=== PATIENT | female | born 1985 | race African-American/Black ===

== ENCOUNTER → 2019-03-17 15:38 | Outpatient (CLI) | payer MEDICAID, SELFPAY ==
[2019-03-17 21:49] LABS: Chlamydia Trachomatis by PCR Negative (Negative); Neisserai gonorrhoeae by PCR Negative (Negative); Probe Check PASS; Sample Adequacy Control PASS; Specimen Processing Control PASS
[2019-03-21 18:46] LABS: HPV Reflexed? NOT INDICATED
== END ==
PROVIDERS: Visit Provider Obstetrics & Gynecology
DX: Z12.4 Encounter for screening for malignant neoplasm of cervix (principal); Z11.3 Encounter for screening for infections with a predominantly sexual mode of transmission
CPT/HCPCS: 87491; 87591; 88175; G0145

== ENCOUNTER → 2021-02-12 | Outpatient (CLI) | payer MEDICAID, SELFPAY ==
[2021-02-17 13:28] LABS: HPV Reflexed? NOT INDICATED
== END | disposition home or self-care (01) ==
LOC: LABSPEC 10:17
PROVIDERS: Visit Provider Obstetrics & Gynecology
DX: Z12.4 Encounter for screening for malignant neoplasm of cervix (principal)
CPT/HCPCS: 88175; G0145

== ENCOUNTER 2022-02-28 22:57 | Emergency (ER) | payer MEDICAID, SELFPAY ==
--- NOTE | 2022-02-28 00:12 | RAD_ITS ---
STUDY: X-RAY CHEST REASON FOR EXAM: Female, 37 years old. chest pain TECHNIQUE: Single AP portable view of the chest. COMPARISON: None. FINDINGS: The lungs are clear and expanded. There is no demonstrated pleural abnormality. Normal size heart. Normal mediastinum and nadja. Normal visualized pulmonary arteries. Normal visualized aortic arch and descending thoracic aorta. Normal visualized thoracic spine. Normal visualized ribs, clavicles, and shoulders. There is no demonstrated abnormality of the visualized soft tissue structures of the upper abdomen. RAD/Chest 1 View (Portable) IMPRESSION: Normal x-ray examination of the chest. Electronically Signed: Alexis Benoit MD at 0:56 EST ,
[2022-02-28 22:59] VITALS: BP 143/86; PULSE 100; RESP 16; TEMP 36.4; O2SAT 97; BMI 40.7
--- NOTE | 2022-02-28 23:18 | EDS_ITS ---
HPI History of Present Illness Chief Complaint: Headache Informant: patient Narrative Narrative: Patient presents with what she describes as a migraine. She states she has a long history of migraines going back to childhood in her teenage years. In the past she has been on amitriptyline as well as multiple other medicines to try to control these. She has had trigger point injections. But she states she was doing pretty well for a few years. Now the last 1 to 1-1/2 years that your headaches been coming back more frequently and more severe. This headache started somewhere 1 to 2 weeks ago. Slow onset. Not thunderclap. She states is not the worst headache she has but it is lasting longer than most. She describes it is all over the head. She does have some mild sonophobia. She has some photophobia. She has had nausea and vomiting when it gets bad. No numbness tingling or weakness. She was seen at urgent care today and got relief with Toradol but it only lasted about 3 or 4 hours and now she is back here. She denies being ill recently with such things as fevers cough myalgias rashes or other complaints. No weight loss. No traumas. Again, no neurologic symptoms. She describes this is a typical migraine for her it is just lasting longer than normal. She has been seeing a doctor about her anxiety as they think that is a contributor to the migraines but she has not been placed on blood controlling meds yet. PFSH PFS Home Medications bupropion HCl 200 mg tablet,12 hr sustained-release 200 mg PO BID 03/01/22 [History Last Taken Unknown] buspirone 10 mg tablet 10 mg PO TID 03/01/22 [History Last Taken Unknown] ondansetron 4 mg disintegrating tablet 4 mg PO PRN PRN Nausea 03/01/22 [History Last Taken Unknown] prednisone 20 mg tablet 40 mg PO DAILY 5 days #10 tabs 03/01/22 [Rx Last Taken Unknown] promethazine 25 mg tablet 25 mg PO PRN PRN Nausea 03/01/22 [History Last Taken Unknown] Allergy/AdvReac Type Severity Reaction Status Date / Time No Known Allergies Allergy Verified 02/28/22 23:00 Social History Smoking Status: Never smoker ROS ROS ED Constitutional Constitutional ED: Denies chills, fever(s) or subjective Eyes Eyes: Denies blurry vision, change in vision or diplopia ENT ENT ED: Denies rhinorrhea or sore throat Cardiovascular Cardiovascular: Reports chest pain and other Details: Patient did state on rev iew of systems that she has some chest pain. She thinks it is just that all her muscles tighten up when the headache is bad and those include muscles in her chest. She is not having the symptoms now. She has noted dyspnea and diaphoresis. Nausea and vomiting is more related to headaches. She has no history of high blood pressure cholesterol diabetes smoking or family history of heart disease. Respiratory/Chest Respiratory/Chest: Denies cough Gastrointestinal Gastrointestinal: Reports nausea and vomiting; Denies abdominal pain or diarrhea Genitourinary Genitourinary ED: Denies dysuria Musculoskeletal Musculoskeletal: Denies arthralgias Integumentary Denies rash Neurologic Neurologic: Reports headache(s); Denies paresthesias or weakness Psychiatric Psychiatric: Reports anxiety Endocrine Endocrinology: Denies polydipsia or polyuria Hematologic/Lymphatic Hematologic/Lymphatic: Denies lymphadenopathy Allergic/Immunologic Allergic/Immunologic ED: Denies urticaria EXAM Physical Exam Const Vital Signs: 02/28/22 22:59 02/28/22 23:46 Temperature 97.6 F L Temperature Source Temporal Pulse Rate 100 73 Respiratory Rate 16 16 Blood Pressure 143/86 H Blood Pressure Mean 105 Pulse Ox 97 97 Oxygen Delivery Method Room Air Room Air Positive well nourished and well developed General Appearance ED: well developed and NAD HEENT Reports moist mucous membranes HEENT Narrative: Mucous membranes are still moist. She does not have temporal artery tenderness. No rashes. No sinus tenderness. No nasal discharge. Eyes EOMs intact bilaterally Eyes Narrative: Extraocular muscles are intact. She does have some photophobia. No proptosis. Neck supple Neck Narrative: No JVD or meningismus Chest Wall inspection of chest normal Resp normal respiratory effort and clear to auscultation bilaterally Cardio regular rate and regular rhythm GI normal to inspection, nondistended, normoactive bowel sounds and non-tender Back/Spine no CVA tenderness Extremity normal to inspection Neuro oriented x3 and CN's II-XII intact bilaterally Sensorium / Orientation: alert; Negative for orientation impaired, lethargic or stuporous Psych mental status grossly normal Skin no rashes or lesions noted MDM MDM MDM Narrative Medical decision making narrative: Chest x-ray and CT showed no acute process. CBC is normal. Electrolytes are normal. Chloride was minimally up. Mild elevation in the BUN and creatinine but she was given IV fluids here. Glucose was 124. I rechecked the patient and she feels completely resolved. She is not having headache. She is not nauseated. No photophobia. My concern is that she has been having this headache coming and going for a week or 2 weeks now. This is her second visit to medical system for care. I will give a short course of steroids to see if this will give her some benefit. Patient's troponin was also negative. She had made the comment about chest pain but this was in combination with kind of pains and cramping all over when she got nauseated and with a headache. She is at low risk for heart disease. The symptoms have been going off and on for a day or so I do not think this needs a repeat troponin. Lab Data Attestation: I reviewed the patient's lab results. Labs: Laboratory Results - last 24 hr 02/28/22 02/28/22 23:15 23:15 WBC 9.8 RBC 5.25 Hgb 14.2 Hct 43.9 MCV 83.6 MCH 27.0 MCHC 32.3 RDW Std Deviation 38.3 RDW Coeff of Sandie 12.6 Plt Count 229 MPV 10.7 Immature Gran % (Auto) 0.400 Neut % (Auto) 69.1 Lymph % (Auto) 13.9 L Dooly % (Auto) 8.9 Eos % (Auto) 7.4 H Baso % (Auto) 0.3 Absolute Neuts (auto) 6.8 Absolute Lymphs (auto) 1.36 Nucleated RBC % 0 Sodium 140 Potassium 3.6 Chloride 108 H Carbon Dioxide 25.0 Anion Gap 7 BUN 20 H Creatinine 0.92 Estim Creat Clear Calc 82.21 Est GFR (MDRD) Af Amer 89 Est GFR (MDRD) Non-Af 74 BUN/Creatinine Ratio 21.9 H Glucose 124 H Calcium 9.2 Troponin I High Sens 3 Radiography Diagnostic Testing: Clinical Impression(s) from Imaging Studies Chest X-Ray 02/28/22 00:12 IMPRESSION: Normal x-ray examination of the chest. Electronically Signed: Alexis Benoit MD at 0:56 EST , Brain CT 03/01/22 23:16 IMPRESSION: Normal unenhanced CT scan of the brain. Electronically Signed: Alexis Benoit MD at 0:55 EST Reading Location ID and State: [facility] / [place] Tel , Service support , Chest x-ray looked by me and read by radiology shows no acute process. CT also showed was normal. EKG Initial EKG: Comments: EKG done for history of chest pain read by me shows a normal sinus rhythm overall rate of 87. No ventricular ectopy. No acute ST elevation or depression. CT interval, QRS duration and QTc are normal. Discharge Plan Triage Chief Complaint: Headache ED Provider: Altaf Davidson Dx/Rx/DC Orders Clinical Impression: Headache, migraine, Chest pain Instructions: ED, Migraine (Classical) Prescriptions: New prednisone 20 mg tablet 40 mg PO DAILY 5 Days Qty: 10 0RF No Action buspirone 10 mg tablet 10 mg PO TID promethazine 25 mg tablet 25 mg PO PRN PRN (Reason: Nausea) ondansetron 4 mg tablet,disintegrating 4 mg PO PRN PRN (Reason: Nausea) bupropion HCl 200 mg tablet sustained-release 12 hr 200 mg PO BID Primary Care Provider: Joaquin Alarcon NP Referrals: Joaquin Alarcon STRATEGIC SOURCING MANAGER, STRATEGIC SOURCING MANAGER-C [Primary Care Provider] - 3-5 Days if not improving Disposition Disposition: Home, Self Care
[2022-02-28 23:42] LABS: Absolute Lymphocyte Count 1.36 X10^3/uL (0.83-4.51); Absolute Neutrophil Count 6.8 X10^3/uL (2.0-7.7); Basophil# 0.03 X10^3/uL; Basophil% 0.3 % (0-1); Eosinophil# 0.72 X10^3/uL; Eosinophils% 7.4 % (0-5); Hematocrit 43.9 % (37-47); Hemoglobin 14.2 g/dL (12.0-15.0); Lymphocyte # 1.36 X10^3/ul (0.83-4.51); Lymphocyte % 13.9 % (19-41); Mean Corp Hgb Conc 32.3 g/dL (32-36); Mean Corpuscular Volume 83.6 fL (81-99); Mean Platelet Vol. 10.7 fl (6.2-12.0); Monocyte# 0.87 X10^3/uL; Monocyte% 8.9 % (0-10); NRBC Flagged by Analyzer 0 % (0-5); Neutrophil # 6.76 X10^3/uL (2.7-7.7); Neutrophil % 69.1 % (47-70); Platelet Count 229 K/mm3 (150-450); RBC Distribution Width CV 12.6 % (11.6-14.6); RBC Distribution Width SD 38.3 fl (35.1-43.9); Red Blood Count 5.25 M/mm3 (4.2-5.4); White Blood Count 9.8 K/mm3 (4.4-11.0)
[2022-02-28 23:46] VITALS: PULSE 73; RESP 16; O2SAT 97
[2022-02-28 23:57] LABS: Anion Gap 7 (5-15); BUN 20 mg/dL (7-18); BUN/Creat Ratio 21.9 RATIO (10-20); Calcium,Total 9.2 mg/dL (8.5-10.1); Chloride 108 mmol/L (98-107); Creatinine, Serum 0.92 mg/dL (0.55-1.02); EST Glomerular Filtration Rate 74 mL/min (>60); Est Glom Filt Rate - Afr Amer 89 mL/min (>60); Estimated Creatinine Clearance 82.21 ml/min; Glucose 124 mg/dL (74-106); Potassium 3.6 mmol/L (3.5-5.1); Sodium Level 140 mmol/L (136-145); Troponin-I HS 3 pg/mL (3.0-54.0)
[2022-03-01] MEDS: 0.9% Normal Saline 1,000 ML 999 ML IV (00:31)
[2022-03-01] MEDS: DiphenhydrAMINE 50 MG/ML Syringe IV (00:31)
[2022-03-01] MEDS: proCHLORPERazine 10 MG/2 ML Vial IV (00:31)
[2022-03-01] MEDS: MethylPREDNISolone 125 MG/2 ML Vial 60 MG IV (02:05)
[2022-03-01 02:06] VITALS: PULSE 81; RESP 16; O2SAT 98
--- NOTE | 2022-03-01 23:16 | CT_ITS ---
STUDY: CT BRAIN WITHOUT CONTRAST REASON FOR EXAM: Female, 37 years old. Pain RADIATION DOSAGE (If Supplied By Facility): CTDIvol = ( 44.99 ) mGy, DLP = ( 812.98 ) mGycm TECHNIQUE: Transaxial CT imaging of the brain was performed without administration of intravenous contrast material. Individualized dose optimization techniques were used for this CT. COMPARISON: No relevant priors. FINDINGS: Normal soft tissue structures. Normal calvarium. Normal size ventricles and extra-axial spaces for the patient''s age. Normal white matter tracts of the cerebral hemispheres. Normal basal ganglia and thalami. Normal brainstem. Normal cerebellum. There is no intracranial hemorrhage. There are no findings of an acute ischemic infarction. Normal visualized paranasal sinuses. CT/Brain/Head without Contrast IMPRESSION: Normal unenhanced CT scan of the brain. Electronically Signed: Alexis Benoit MD at 0:55 EST ,
== END 2022-03-01 02:07 | disposition home or self-care (01) ==
PROVIDERS: Emergency Provider Emergency Medicine; PCP Nurse Practitioner Family; Visit Provider Emergency Medicine
DX: G43.909 Migraine, unspecified, not intractable, without status migrainosus (principal); R07.9 Chest pain, unspecified; Z79.899 Other long term (current) drug therapy
CPT/HCPCS: 70450; 71045; 80048; 84484; 85025; 93005; 96361; 96374; 96375; 99283; J7030; A4216

== ENCOUNTER 2022-03-08 12:56 | Emergency (ER) | payer MEDICAID, SELFPAY ==
[2022-03-08 12:57] VITALS: BP 125/82; PULSE 68; RESP 18; TEMP 36.1; O2SAT 98; BMI 40.2
--- NOTE | 2022-03-08 13:15 | US_ITS ---
STUDY: ABDOMINAL ULTRASOUND - RIGHT UPPER QUADRANT REASON FOR VISIT: Female, 37 years old RUQ pain TECHNIQUE: Ultrasound evaluation of the right upper quadrant was performed with real-time and static comer-scale imaging. TECHNICAL QUALITY: Adequate. COMPARISON: None. FINDINGS: Liver: The liver measures 17.5 cm. There is normal echogenicity of the liver. The bile ducts are within normal limits. There is hepatic color flow. The direction of portal flow is hepatopetal. There is no demonstrated mass lesion. Gallbladder: Normal distended gallbladder. The gallbladder wall measures 2 mm. There is a positive sonographic Quezada''s sign. There is no pericholecystic fluid. There are a few gallstones. Common Bile Duct (C.B.D.): The common bile duct measures 4 mm. Pancreas: Normal size of the head and body of the pancreas. The pancreatic tail is obscured by overlying bowel gas. There is normal echogenicity of the pancreas. There is no demonstrated pancreatic mass or cyst. The pancreatic duct is not dilated with a 2 mm diameter. Right Kidney: Normal size of the right kidney. The right kidney measures 12 x 5.6 x 5.4 cm. Normal renal cortex. The right cortex measures 1.8 cm. Small anechoic cyst measuring 1.4 x 1.2 x 1.2 cm. There is no right hydronephrosis. US/Gallbladder IMPRESSION: 1. Few small gallstones with positive sonographic Quezada''s sign but no pericholecystic fluid. 2. Small right renal anechoic cyst. Electronically Signed: Johnny Rogers MD at 14:22 EST ,
--- NOTE | 2022-03-08 13:18 | EDS_ITS ---
HPI History of Present Illness Chief Complaint: Abd Pain Narrative Narrative: 37-year-old female presenting with right upper quadrant abdominal pain. She states this started on Wednesday. Pain is worsened with eating. She has had nausea and dry heaves. Denies vomiting or diarrhea. She states she had a low- grade fever at home. No history of previous abdominal surgeries. Denies possibility of . Prior similar symptoms: Yes Recent Illness/Hospitalization: No PFSH PFSH Home Medications bupropion HCl 200 mg tablet,12 hr sustained-release 200 mg PO BID 03/01/22 [History Last Taken Unknown] buspirone 10 mg tablet 10 mg PO TID 03/01/22 [History Last Taken Unknown] ondansetron 4 mg disintegrating tablet 4 mg PO PRN PRN Nausea 03/01/22 [History Last Taken Unknown] prednisone 20 mg tablet 40 mg PO DAILY 5 days #10 tabs 03/01/22 [Rx Last Taken Unknown] promethazine 25 mg tablet 25 mg PO PRN PRN Nausea 03/01/22 [History Last Taken Unknown] hydrocodone-acetaminophen 5-325mg 5mg-325mg 1 tab PO Q6H PRN PRN Pain 3 days #10 TABLETS 03/08/22 [Rx Last Taken Unknown] Allergy/AdvReac Type Severity Reaction Status Date / Time No Known Allergies Allergy Verified 03/08/22 12:58 Social History Smoking Status: Never smoker ROS ROS ED Constitutional Constitutional ED: Denies fever(s) Eyes Eyes: Denies change in vision ENT ENT ED: Denies rhinorrhea or sore throat Cardiovascular Cardiovascular: Denies chest pain or palpitations Respiratory/Chest Respiratory/Chest: Denies cough or dyspnea Gastrointestinal Gastrointestinal: Reports abdominal pain and nausea; Denies diarrhea or vomiting Genitourinary Genitourinary ED: Denies dysuria Musculoskeletal Musculoskeletal: Denies myalgias Integumentary Denies rash Neurologic Neurologic: Denies headache(s) Psychiatric Psychiatric: Denies suicidal thoughts EXAM Physical Exam Const Vital Signs: 03/08/22 12:57 Temperature 96.9 F L Temperature Source Temporal Pulse Rate 68 Respiratory Rate 18 Blood Pressure 125/82 H Blood Pressure Mean 96 Pulse Ox 98 Oxygen Delivery Method Room Air Positive well nourished and well developed General Appearance ED: well developed HEENT Reports normocephalic and head/scalp atraumatic Eyes PERRL and EOMs intact bilaterally Neck supple General: Negative for tenderness Chest Wall inspection of chest normal Resp normal respiratory effort and clear to auscultation bilaterally Cardio regular rate and regular rhythm GI non-distended Palpation: soft and tender RUQ; Negative for guarding or rebound tenderness present no CVA tenderness Extremity normal to inspection Neuro oriented x3 Sensorium / Orientation: alert Psych mental status grossly normal MDM MDM MDM Narrative Medical decision making narrative: Patient is given IV fluids, morphine, Zofran. CBC shows a normal white count. Chemistries are unremarkable. Total bili 0.4, AST 13, ALT 19. Lipase is normal. negative. Ultrasound gallbladder shows few small gallstones with positive sonographic Quezada sign but no pericholecystic fluid. Patient is feeling improved on reevaluation. She will follow-up with Dr. Glez as an outpatient. Advised return to ED for worsening complaints. Lab Data Attestation: I reviewed the patient's lab results. Labs: Laboratory Results - last 24 hr 03/08/22 03/08/22 03/08/22 13:24 13:24 13:24 WBC 5.0 RBC 5.30 Hgb 14.7 Hct 44.8 MCV 84.5 MCH 27.7 MCHC 32.8 RDW Std Deviation 38.1 RDW Coeff of Sandie 12.4 Plt Count 255 MPV 10.5 Immature Gran % (Auto) 0.200 Neut % (Auto) 31.9 L Lymph % (Auto) 37.3 Hayes % (Auto) 7.6 Eos % (Auto) 22.2 H Baso % (Auto) 0.8 Absolute Neuts (auto) 1.6 L Absolute Lymphs (auto) 1.86 Nucleated RBC % 0 Differential Comment SCANNED Atypical Lymphocytes 2+ Sodium 141 Potassium 3.6 Chloride 108 H Carbon Dioxide 28.0 Anion Gap 5 BUN 6 L Creatinine 0.67 Estim Creat Clear Calc 112.88 Est GFR (MDRD) Af Amer 128 Est GFR (MDRD) Non-Af 106 BUN/Creatinine Ratio 9.0 L Glucose 98 Calcium 8.6 Total Bilirubin 0.40 AST 13 L ALT 19 Alkaline Phosphatase 57 Total Protein 8.1 Albumin 3.5 Globulin 4.6 H Albumin/Globulin Ratio 0.8 L Lipase 54 L Serum , Qual NEGATIVE Radiography Diagnostic Testing: Clinical Impression(s) from Imaging Studies Gallbladder Ultrasound 03/08/22 13:15 IMPRESSION: 1. Few small gallstones with positive sonographic Quezada''s sign but no pericholecystic fluid. 2. Small right renal anechoic cyst. Electronically Signed: Johnny Rogers MD at 14:22 EST Reading Location ID and State: [address] [place] [address] , Service support , Discharge Plan Triage Chief Complaint: Abd Pain ED Provider: Maria Guadalupe Gonzales Dx/Rx/DC Orders Clinical Impression: Biliary colic Instructions: ED Gallstones with Biliary Colic Prescriptions: New hydrocodone-acetaminophen 5-325 mg tablet 1 tab PO Q6H PRN PRN (Reason: Pain) 3 Days Qty: 10 0RF No Action buspirone 10 mg tablet 10 mg PO TID promethazine 25 mg tablet 25 mg PO PRN PRN (Reason: Nausea) ondansetron 4 mg tablet,disintegrating 4 mg PO PRN PRN (Reason: Nausea) bupropion HCl 200 mg tablet sustained-release 12 hr 200 mg PO BID prednisone 20 mg tablet 40 mg PO DAILY 5 Days Qty: 10 0RF Primary Care Provider: Joaquin Alarcon NP Referrals: Marco Glez MD [Med Staff - Active Staff] - Joaquin Alarcon NP, ASSURANCE ASSISTANT-C [Primary Care Provider] - Disposition Disposition: Home, Self Care
[2022-03-08] MEDS: Morphine 4 MG/ML Syringe IV (13:24)
[2022-03-08] MEDS: Ondansetron 4 MG/2 ML Vial IV (13:24)
[2022-03-08] MEDS: 0.9% Normal Saline 1,000 ML 1000 ML IV (13:25)
[2022-03-08 13:29] LABS: Absolute Lymphocyte Count 1.86 X10^3/uL (0.83-4.51); Absolute Neutrophil Count 1.6 X10^3/uL (2.0-7.7); Basophil# 0.04 X10^3/uL; Basophil% 0.8 % (0-1); Eosinophil# 1.11 X10^3/uL; Eosinophils% 22.2 % (0-5); Hematocrit 44.8 % (37-47); Hemoglobin 14.7 g/dL (12.0-15.0); Lymphocyte # 1.86 X10^3/ul (0.83-4.51); Lymphocyte % 37.3 % (19-41); Mean Corp Hgb Conc 32.8 g/dL (32-36); Mean Corpuscular Hgb 27.7 pg (27.0-32.0); Mean Corpuscular Volume 84.5 fL (81-99); Mean Platelet Vol. 10.5 fl (6.2-12.0); Monocyte# 0.38 X10^3/uL; Monocyte% 7.6 % (0-10); NRBC Flagged by Analyzer 0 % (0-5); Neutrophil # 1.59 X10^3/uL (2.7-7.7); Neutrophil % 31.9 % (47-70); POSITIVE MORPHOLOGY YES; Platelet Count 255 K/mm3 (150-450); RBC Distribution Width CV 12.4 % (11.6-14.6); RBC Distribution Width SD 38.1 fl (35.1-43.9)
[2022-03-08 13:31] LABS: Differential Indicated SCAN CRITERIA MET
[2022-03-08 13:37] LABS: Internal QC Validated? YES +Cl - CLEAR BKGD; Pregnancy, Serum, hCG Quali. NEGATIVE Negative
[2022-03-08 13:46] LABS: ALB/GLOB Ratio 0.8 RATIO (0.9-2.4); AST(SGOT) 13 U/L (15-37); Alanine Aminotransfer ALT/SGPT 19 U/L (13-56); Albumin, Serum 3.5 g/dL (3.2-5.0); Alkaline Phosphatase 57 U/L (45-117); Anion Gap 5 (5-15); BUN 6 mg/dL (7-18); Calcium,Total 8.6 mg/dL (8.5-10.1); Chloride 108 mmol/L (98-107); Creatinine, Serum 0.67 mg/dL (0.55-1.02); EST Glomerular Filtration Rate 106 mL/min (>60); Est Glom Filt Rate - Afr Amer 128 mL/min (>60); Estimated Creatinine Clearance 112.88 ml/min; Globulin 4.6 g/dL (2.2-4.2); Glucose 98 mg/dL (74-106); Lipase 54 U/L (73-393); Potassium 3.6 mmol/L (3.5-5.1); Protein, Total 8.1 g/dL (6.4-8.2); Sodium Level 141 mmol/L (136-145)
[2022-03-08 13:48] LABS: Atypical Lymphocyte 2+ %; Differential Comment SCANNED
[2022-03-08 15:25] LABS: Mucous, Urine 0 SEEN /hpf (<or=2+)
[2022-03-08 15:31] LABS: Color, Urine Straw (Yellow); Glucose, Dipstick Normal (Normal); Ketone-Dipstick 5 mg/dl (Negative); Leukocyte Esterase-Dipstick 500 /ul (Negative); Nitrite-Dipstick Positive (Negative); Occult Blood-Urine 10 /ul (Negative); Protein-Dipstick 15 mg/dl (Negative); Urine Bilirubin Dipstick Negative (Negative); Urine Clarity Sl. Cloudy (Clear); Urine Urobilinogen Normal (Normal)
[2022-03-08 16:00] LABS: Bacteria 2+ /hpf (None Seen); Red Blood Cells-Urine 0-5 SEEN /hpf (0-5); Squamous Epithelial Cells - UA 0-5 SEEN /hpf (5-10); White Blood Cells 0-5 SEEN /hpf (0-5)
== END 2022-03-08 16:26 | disposition home or self-care (01) ==
PROVIDERS: Emergency Provider Emergency Medicine; PCP Nurse Practitioner Family; Visit Provider Emergency Medicine
DX: K80.50 Calculus of bile duct without cholangitis or cholecystitis without obstruction (principal)
CPT/HCPCS: 76705; 80053; 81001; 83690; 84703; 85025; 96361; 96374; 96375; 99283; J7030; A4216; J2405

== ENCOUNTER 2022-03-16 10:50 | Day surgery (SDC) | payer MEDICAID, SELFPAY ==
[2022-03-16] VITALS (9 sets, daily range): BP systolic 104–135; BP diastolic 66–92; PULSE 69–94; RESP 12–18; TEMP 36.2–36.6; O2SAT 93–99; BMI 39.9
--- NOTE | 2022-03-16 | GALL_PTH ---
PATIENT: MELYSSA ERNANDEZ LOC: [facility] – [place] U#:[id number] AGE/SX: 37/F ROOM: RE03/16/[address]: Dr. Marco Glez MD : 1985 BED: DIS: 03/16/2022 SPEC #: [id number] RECD: 03/16/22 14:24 STATUS: LEE DAGMAR #: [id number] ROXIE: 03/16/22 00:[address]: Marco Glez DEPT: SURGICAL PATHOLOGY RECD BY: Bert Sexton ENTERED: 03/17/22 09:10 SP TYPE: ROBERT PEPPER DR: Joaquin Alarcon, BUTTERMAKER-C Tissues: Gallbladder, NOS Procedures: Surgery Specimen Level III HEADER OPERATION: Laparoscopic cholecystectomy with IOC PRE-OP DIAGNOSIS: Calculus of gallbladder TISSUE SUBMITTED: Gallbladder with contents MICROSCOPIC DIAGNOSIS Gallbladder and contents, cholecystectomy: Acute and chronic cholecystitis, cholelithiasis and cholesterolosis. SJ:christel 03/18/2022 MICROSCOPIC DESCRIPTION Slides are reviewed. GROSS DESCRIPTION Received is one container labeled with the patient's name and designated gallbladder and contents. The specimen consists of a gallbladder measuring 9 cm in length and up to 5 cm in diameter. The external surface is pink-hwang, smooth and glistening for the most part. Focally it is granular, hemorrhagic and contains cautery artifact. The gallbladder is distended with green-yellow mucoid bile and contains three yellow, mulberry stones each measuring 1.2 cm in greatest dimension. The mucosa also shows several yellowish streaks consistent with cholesterolosis. The mucosa is bile-stained and without any mass lesions. The gallbladder wall measures up to 0.1 cm in thickness. [employer] sections from the gallbladder and the cystic duct are submitted in one cassette. / LILA:christel 03/17/2022 TC:3 CPT: 39722
--- NOTE | 2022-03-16 11:15 | RAD_ITS ---
STUDY: INTRAOPERATIVE CHOLANGIOGRAM. REASON FOR EXAM: Female, 37 years old. Laparoscopic cholecystectomy. FLUOROSCOPY TIME (if supplied): ( 12 seconds ) minutes/seconds. A cine loop of 30 images was submitted. TECHNIQUE: An intraoperative Cholangiogram was performed by the surgeon. Imaging was submitted. COMPARISON: None. FINDINGS: The visualized intra and extrahepatic biliary ducts are unremarkable. No intraluminal filling defect is seen. There is free flow of contrast into the duodenum. RAD/Cholangiogram/ O R,Initial IMPRESSION: Unremarkable intraoperative cholangiogram. Electronically Signed: Nader Porter MD at 8:24 EST ,
[2022-03-16 11:18] LABS: Internal QC Validated? YES +Cl - CLEAR BKGD; Pregnancy, Urine Negative Negative
[2022-03-16] MEDS: Lactated Ringers 1,000 ML 15 ML IV ×2 (11:35→14:00)
--- NOTE | 2022-03-16 13:28 | HP.PCM_ITS ---
History and Physical Date of Admission: 03/16/22 Intake Vital Signs ? 03/08/2311:57 03/13/2308:38 Height 5 ft 7 in 5 ft 7 in Weight: 257 lb 259 lb 2 oz BMI 40.2 40.6 BP 125/82 H 114/81 H Blood Pressure Location ? Lt brachial Position ? Sitting Respiration 18 16 Pulse 68 101 H Pulse Source ? Monitor Temp 96.9 F L 97.9 F Temp Source Temporal Temporal Pulse Oximetry (%) 98 96 Oxygen Delivery Method ? room air Intake Visit Reasons:?GALLSTONES Chief Complaint: Gallstones Plate Grinder Required: No Is patient in pain?: Yes Allergies No Known Allergies Allergy (Verified 03/13/22 09:39) Medications bupropion HCl 200 mg tablet,12 hr sustained-release 200 mg PO BID 03/01/22 [History Confirmed 03/13/22] buspirone 10 mg tablet 10 mg PO TID 03/01/22 [History Confirmed 03/13/22] ondansetron 4 mg disintegrating tablet 4 mg PO PRN PRN Nausea 03/01/22 [History Confirmed 03/13/22] prednisone 20 mg tablet 40 mg PO DAILY 5 days #10 tabs 03/01/22 [Rx Confirmed 03/13/22] promethazine 25 mg tablet 25 mg PO PRN PRN Nausea 03/01/22 [History Confirmed 03/13/22] hydrocodone-acetaminophen 5-325mg 5mg-325mg 1 - 2 tab PO Q6H PRN PRN Pain 5 days #20 TABLETS 03/13/22 [Rx Confirmed 03/13/22] PFSH Social History?(Updated 03/13/22 @ 09:38 by Hermila Lisa) Smoking Status:? Never smoker alcohol intake:? never substance use type:? does not use HPI HPI HPI: Patient is a 37-year-old female here with right upper quadrant pain.? She says the pain has been severe since New Year's.? She was in the emergency room that day and it was found that she had a normal white count but she did have stones in her gallbladder.? Patient reports that with pain medication she has been able to have the pain under control.? She does have nausea with dry heaving. ROS General General: Yes weight change and fatigue; No appetite, colon cancer, breast cancer or weakness HEENT HEENT: No difficulty swallowing, eye injury, eye surgery, swollen glands or hoarseness Endo Endocrine: No thyroid disease, diabetes mellitus, thyroid cancer, Hair loss, heat intolerance or cold intolerance Skin Skin: No rash or changing moles Breast Breast: No left breast lump, right breast lump, nipple discharge, breast pain, abnormal mammogram, abnormal US or breast enlargement Musc Musculoskeletal: Yes back problems; No arthritis, rheumatoid arthritis, gout or joint pain Cardio Cardiovascular: No murmur, pacemaker, heart disease, atrial fibrillation, high blood pressure, heart attack, heart stent, palpitations, shortness of breat with exertion or chest pain Psych Psychiatric: Yes depression and anxiety; No hearing voices Resp Respiratory: Yes shortness of breath, No sleep apnea, No cough, No COPD, No asthma, No emphysema and No wheezing Gastro Gastrointestinal: Yes abdominal pain, Yes nausea or vomiting, No diarrhea, No constipation, No blood in stool, No acid reflux, No hemorrhoids, No ulcers, Yes gallbladder problem and No black,tarry stools [place] Hematologic: No blood thinners, No blood disorders, No bleeding, No anemia and No blood clots Neuro Neurologic: No system reviewed and no additional complaints, except as documented, No as per HPI, No abnormal gait, No abnormal hearing, No abnormal movements, No abnormal speech, No behavioral changes, No burning sensations, No confusion, No convulsions, No disequilibrium, No dizziness, No localized weakness, No frequent falls, No headache(s), No lack of coordination, No loss of vision, No memory loss, Yes numbness, No other visual disturbances, No radicular pain, No restless legs, No sensory deficit, No syncope, Yes tingling, No tremor(s), No weakness and No other Exam Const General: cooperative Orientation: alert and oriented x3 [facility] Head: normal to inspection Neck Neck: normal visual inspection and full ROM Chest Chest palpation & inspection: normal inspection of the chest Resp Effort & Inspection: normal respiratory effort Auscultation: clear to auscultation bilaterally Cardio Rate: regular rate Rhythm: regular rhythm GI Inspection: non-distended Palpation: soft and tender in the RUQ Skin General: no rashes or lesions noted Neuro General: patient alert and patient oriented x3 Extrem General: full ROM Psych Appearance: grossly normal Mental Status: mental status grossly normal Assessment and Plan Assessment and Plan (1) Cholelithiasis: ?Status:?Acute ?Qualifiers: ?Cholelithiasis location:?gallbladder??Cholecystitis presence:?without cholecystitis??Biliary obstruction:?without biliary obstruction? Qualified Code(s):?K80.20 - Calculus of gallbladder without cholecystitis without obstruction (2) Biliary colic: ?Status:?Acute ? ? ? Medications: Changed From hydrocodone-acetaminophen 5-325 mg 1 TAB? PO Q6H PRN 3 days PRN 10 TABLETS 0RF Pain K80.50 - Calculus of bile duct without cholangitis or cholecystitis without obstruction ? To hydrocodone-acetaminophen 5-325 mg 1 - 2 tabs (1 - 2 x 5-325 mg) PO Q6H PRN 5 days PRN 20 TABLETS 0RF Pain K80.50 - Calculus of bile duct without cholangitis or cholecystitis without obstruction ? Plan Patient is having right upper quadrant pain.? She was in the emergency room and had an ultrasound that showed gallstones but did not show any pericholecystic fluid and her white count was normal with no fevers or chills.? She reports she is having ongoing pain in this area.? I did offer her laparoscopic cholecystectomy early in the week and I advised her to present to the emergency room if anything got worse over the weekend or if she developed any fevers or chills. I discussed the procedure in detail with the patient.? I discussed the risks, benefits, and alternatives of the procedure.? I discussed the risks including but not limited to bleeding, infection, injury to surrounding organs such as the liver, bile duct, bowels.? I did discuss the possibility of having to convert to an open procedure as well as the possibility that if any injuries occurred this may necessitate further surgery at a tertiary care center. Marco Glez MD Pager: [facility] [address] [place] [address], [address] [place] [address] Office: I have examined the patient and the H&P has been reviewed. There are no clinical changes since date of exam.
--- NOTE | 2022-03-16 13:45 | PCM.OPRPT ---
Report of Operation Date of Procedure: 03/16/22 Pre-Operative Diagnosis: Cholelithiasis and biliary colic Post-Operative Diagnosis: Same Surgery/Procedure Performed:: Laparoscopic cholecystectomy with cholangiogram Specimen's removed: Gallbladder Description of Procedure: After obtaining informed consent patient was brought back to the operating room. General anesthesia was induced. The abdomen was prepped and draped in usual sterile fashion. A small midline incision was made superior to the umbilicus and deepened to the level of fascia. The fascia was elevated and incised. Next the peritoneum was elevated and incised in the same fashion. Finger sweep was performed and the Espinoza trocar was placed into the abdomen. The balloon was inflated. The abdomen was inflated to 15 mmHg. Next a camera was introduced into the abdomen and the abdomen was inspected. Next under direct visualization three 5-mm ports were placed one subxiphoid and 2 subcostal. Next the gallbladder was elevated and retracted toward the right shoulder. The peritoneum was stripped from the gallbladder. The infundibulum was located and retracted laterally. Next the triangle of Calot was dissected and the cystic duct and cystic artery were identified. Cholangiograms were performed. The Harris clamp was used to clamp across the infundibulum and the catheter needle was inserted into the gallbladder. Under fluoroscopy contrast was instilled into the gallbladder and the common duct, cystic duct as well as proximal hepatic ducts were identified. There was good filling of the duodenum. There were no filling defects noted in the common bile duct. The clamp was removed as well as the needle and the infundibulum was grasped once more. Three hemolock clips were placed across the cystic duct. The cystic duct was then divided leaving 2 clips on the stump. The cystic artery was clipped and divided in the same fashion. The hook cautery was then used to take the gallbladder off of the gallbladder bed. Hemostasis was obtained. Gallbladder fossa was irrigated and no active bleeding or bile leakage was noted. Next the camera was introduced in the subxiphoid port. An Endopouch bag was placed through the umbilical port and the gallbladder was placed into it. The gallbladder was then removed through the umbilical incision. The camera was then reinserted through the umbilical port. The gallbladder fossa was inspected once more and noted to be hemostatic with no leaking bile. The abdomen was suctioned dry. The 5 mm ports were removed under direct visualization. The umbilical port was then removed and the air was removed from the abdomen. Next using an 0 Vicryl suture the umbilical fascia was closed in a [id number] fashion. The umbilical port site was irrigated local anesthetic was administered to all the incisions. All the incisions were closed with interrupted subcuticular 4-0 Monocryl sutures followed by Steri-Strips and dressings. The patient was awoken and taken to PACU in stable condition. Admit VTE Documentation VTE Mechan Device Prophylaxis: SCD's
--- NOTE | 2022-03-16 13:46 | DCINST_ITS ---
Discharge Instructions Procedure Gallbladder Diet Discharge Diet: Light diet - advance as tolerated Activity Discharge Activity: May Not Drive (for 2-3 days or while taking narcotic pain medications.) and - (Do not drive, work heavy equipment or sign legal documents for 24 hours.) May shower in (days): 1 Lifting Restrictions: 20 lbs for 2 weeks Additional Activity Instructions:: Pain medication may cause nausea. You should typically eat light foods as you take your pain medications. Pain medication may also cause constipation. If this is a problem for you, please discuss with your doctor. Dressing / Incision Call your doctor if your incision/area has: Continuous Slow Oozing, Sudden Increased Bleeding, Increased Pain/ Swelling, Increased Redness and Foul Smelling Discharge Call your doctor if you observe: Fever of 101 or Higher Suture Line Care: Avoid Pulling/Pushing and Avoid Pinching/Bending Remove Dressing in: 2 days Additional Dressing/Incision Instructions:: Leave operative bandaids on for 2 days. When you remove dressing, leave Steri-Strips on until your follow-up appointment, or until the Steri-Strips fall off on their own. Follow Up Care Please Follow Up With: Marco Glez MD When: Please call to schedule 2 week follow up appointment. [phone] Test Results: Test results from this visit will be discussed in further detail at your follow- up appointment, if applicable. Discharge Plan Admission Attending Provider: Marco Glez Primary Care Provider: Joaquin Alarcon NP Discharge Orders/Prescriptions Prescriptions: New oxycodone 5 mg tablet 5 - 10 mg PO Q6H PRN (Reason: pain) 5 Days Qty: 30 0RF No Action hydrocodone-acetaminophen 5-325 mg tablet 1 - 2 tab PO Q6H PRN PRN (Reason: Pain) 5 Days Qty: 20 0RF buspirone 10 mg tablet 10 mg PO TID ondansetron 4 mg tablet,disintegrating 4 mg PO PRN PRN (Reason: Nausea) bupropion HCl 200 mg tablet sustained-release 12 hr 200 mg PO BID Referrals / Follow Up: Joaquin Alarcon NP, [employer] [Primary Care Provider] - Disposition Disposition (needs filled in before D/C Order can be placed): Home, Self Care
[2022-03-16] MEDS: oxyCODONE 5 MG Tablet PO (15:22)
== END 2022-03-16 16:25 | disposition home or self-care (01) ==
LOC: SDC 10:51 → AC 10:53
PROVIDERS: Anesthesiology; PCP Nurse Practitioner Family; Referring Provider Surgery; Visit Provider Surgery
PROC: (CPT 47610; principal; 2022-03-16 11:55)
DX: K80.66 Calculus of gallbladder and bile duct with acute and chronic cholecystitis without obstruction (principal); F32.A Depression, unspecified; F41.9 Anxiety disorder, unspecified; Z79.899 Other long term (current) drug therapy
CPT/HCPCS: 47563; 00790; 74300; 76000; 81025; 88304; 93005; J7120; J2405

== ENCOUNTER 2022-07-12 18:24 | Emergency (ER) | payer MEDICAID, SELFPAY ==
[2022-07-12 18:24] VITALS: BP 124/88; PULSE 79; RESP 15; TEMP 36.4; O2SAT 96; BMI 41.0
--- NOTE | 2022-07-12 19:03 | EDS_ITS ---
HPI History of Present Illness Chief Complaint: Headache Narrative Narrative: Patient is a 37-year-old female who is presenting to the ER with her with chief complaint of acute on chronic headache/migraine. Patient says that her symptoms started last evening. Patient has pressure to the left side of her face, mild blurry vision. Photophobia noted. Patient has some numbness in her left arm which is typical with her headaches and migraines in the past. Patient denies any type of trauma. Patient states last time she had headache like this was back in [place]. Patient's last visit to the ER was back in [place] time as well where she received IV, fluids, medication and felt much better. Last time patient had any type of imaging mighta been back when she was 18 or 19 years old to the brain. Patient has a PCP that helps treat her headaches and migraines. Patient has nausea and the vomiting. No chest pain or shortness of breath. Patient has some vague abdominal discomfort. Patient does not believe that she is , her menses is next week, she does not want to be checked for . Patient has no fall, no syncopal episodes, no other acute complaints. [facility] Medical History Alcohol use Anxiety Asthma Back pain Depression History of steroid therapy Marijuana use Migraine headache Non-smoker Syncope Home Medications NK 07/12/22 [History Last Taken Unknown] metoclopramide HCl 10 mg tablet 10 mg PO 4X/DAY PRN Headache #10 tabs 07/12/22 [Rx Last Taken Unknown] Allergy/AdvReac Type Severity Reaction Status Date / Time No Known Allergies Allergy Verified 03/16/22 11:33 Surgical History (Updated 04/01/22 @ 11:48 by Lore Santiago) Hx of wisdom tooth extraction S/P laparoscopic cholecystectomy Social History Smoking Status: Never smoker alcohol intake: never substance use type: does not use ROS ROS ED ROS Narrative REVIEW OF SYSTEMS: Unless otherwise stated in this report the patient's positive and negative responses for review of systems for constitutional, eyes, ENT, cardiovascular, respiratory, gastrointestinal, neurological, , musculoskeletal, and integument systems and related systems to the presenting problem are either stated in the history of present illness or were not pertinent or were negative for the symptoms and/or complaints related to the presenting medical problem. EXAM Physical Exam Narrative Exam Narrative: Vital signs reviewed and patient is not hypoxic. General: The patient appears well and in no apparent distress. Patient is resting comfortably on cart. Not toxic, lethargic, or listless. Skin: Warm, dry, no pallor noted. There is no rash noted. Head: Normocephalic, atraumatic, no significant tenderness to palpation to bilateral frontal or maxillary sinuses. Patient does have mild to moderate tenderness palpation to bilateral paracervical soft tissue, no meningeal signs or symptoms, full range of motion of cervical spine no difficulty or pain. Patient has no other tenderness palpation to bilateral thoracic, lumbar sacral area. Patient has no deficits to bilateral upper extremities or lower extremities. Eye: Normal conjunctiva, no drainage, EOMI. PERRL. Ears, Nose, Mouth, and Throat: oral mucosa is moist. Nares patent. Mouth without vesicles. Ear canals patent. Tm's without Erythema Cardiovascular: Regular Rate and Rhythm, no murmurs, gallops, or rubs Respiratory: Patient is in no distress, no accessory muscle use, lungs are clear to auscultation, no wheezing, rales or rhonchi Back: non-tender, no CVA tenderness bilaterally to percussion. NO CTLS midline or paracervicl tenderness to palpation. GI: Soft, obese, minimal tenderness to palpation to mid epigastric/periumbilical area, no peritoneal signs, not rigid, no rash, otherwise no tenderness to palpation, no masses appreciated. No rebound, guarding, or rigidity noted. Musculoskeletal: The patient has full range of motion of all extremities and joints with no difficulty. Patient has no motor, no sensory deficits. Neurological: A&O x4, normal speech, no focal neurological deficits. NIH 0 Psychiatric: Cooperative Const Vital Signs: 07/12/22 18:24 Temperature 97.6 F L Temperature Source Oral Pulse Rate 79 Respiratory Rate 15 Blood Pressure 124/88 H Blood Pressure Mean 100 Pulse Ox 96 Oxygen Delivery Method Room Air [facility] Treatment and Re-Evaluation :: Been isPatient had an IV established, was given 1 L of IV fluid, Compazine, Benadryl, Toradol and Norflex. is at bedside, he was driving home Patient was pain-free at discharge. Patient was sent home a prescription of Reglan to use for nausea, vomiting or headache if needed. Education of cervical stretching was shown at bedside and on discharge paperwork. Patient will follow-up with her PCP. Patient is never seen neurology or any type of headache specialist. This was recommended at bedside at discharge as well. Patient was thankful for help, pain-free at discharge with no headache Discharge Plan Triage Chief Complaint: Headache ED Provider: Hilario Solano Dx/Rx/DC Orders Instructions: ED Headache Unspecified, ED, Migraine (Classical) Prescriptions: New metoclopramide HCl [metoclopramide HCl] 10 mg tablet 10 mg PO 4X/DAY PRN (Reason: Headache) Qty: 10 0RF No Action NK Primary Care Provider: Joaquin Alarcon NP Referrals: Joaquin Alarcon NP, [employer] [Primary Care Provider] - Disposition Disposition: Home, Self Care Discharge Date/Time: 07/12/22 21:44
[2022-07-12] MEDS: proCHLORPERazine 10 MG/2 ML Vial IV (19:05)
[2022-07-12] MEDS: 0.9% Normal Saline 1,000 ML 999 ML IV (19:05)
[2022-07-12] MEDS: Ketorolac 15 MG/ML Vial IV (19:06)
[2022-07-12] MEDS: DiphenhydrAMINE 50 MG/ML Syringe 25 MG IV (19:06)
[2022-07-12] MEDS: Orphenadrine 60 MG/2 ML Ampul IV (19:11)
== END 2022-07-12 21:44 | disposition home or self-care (01) ==
PROVIDERS: Emergency Provider Emergency Medicine; PCP Nurse Practitioner Family; Visit Provider Emergency Medicine
DX: R51.9 Headache, unspecified (principal); R10.9 Unspecified abdominal pain
CPT/HCPCS: 96361; 96374; 96375; 99283; J7030; A4216